=== PATIENT | female | born 1985 | race Caucasian/White ===

== ENCOUNTER 2017-05-04 09:24 | Observation (INO) | payer MEDICAID ==
[~2017-05-04] VITALS: Ht 162.6 cm; Wt 84.8 kg
[2017-05-04 10:31] VITALS: BP 122/77
[2017-05-04] MEDS ORDERED: PREN1TAB80 PO (10:32)
== END 2017-05-04 10:30 | disposition home or self-care (01) ==
LOC: 4S 09:24
PROVIDERS: ADMIT Obstetrics & Gynecology; ATTEND Obstetrics & Gynecology
DX: O48.0 Post-term pregnancy (principal); Z3A.40 40 weeks gestation of pregnancy
CPT/HCPCS: 59025; G0378

== ENCOUNTER 2017-05-06 04:08 | Inpatient (IN) | payer MEDICAID ==
[~2017-05-06] VITALS: Ht 162.6 cm; Wt 83.9 kg
[~2017-05-06 04:08] MED LIST: PREN1TAB80 PO
[2017-05-06] MEDS ORDERED: RINGERS SOLUTION,LACTATED 1,000 ML IV PRN (04:35)
[2017-05-06] MEDS ORDERED: OXYTOCIN 30 UNITS/LACT RINGERS 500 ML IV ONE (04:35)
[2017-05-06] MEDS ORDERED: RINGERS SOLUTION,LACTATED 1,000 ML IV SCH (04:35)
[2017-05-06] MEDS ORDERED: CITRIC ACID/SODIUM CITRATE 30 ML SOLUTION UDCUP PO PRN (04:45)
[2017-05-06] MEDS ORDERED: FentaNYL CITRATE-PF 100 MCG/2 ML VIAL IVP PRN (04:45)
[2017-05-06] MEDS ORDERED: METOCLOPRAMIDE HCL 5 MG/ML 2 ML VIAL IVP PRN (04:45)
[2017-05-06 04:48] VITALS: BP 118/79
[2017-05-06 05:09] LABS: BASOPHILS % (AUTO) 0.6 % (0.0-2.0); EOSINOPHILS % (AUTO) 1.7 % (1.0-6.0); HEMATOCRIT 35.3 % (36-46); HEMOGLOBIN 11.9 g/dL (12.0-16.0); LYMPHOCYTES # (AUTO) 2.3 K/uL (1.0-4.8); LYMPHOCYTES % (AUTO) 27.7 % (22.0-44.0); MEAN CORPUSCULAR HEMOGLOBIN 28.5 pg (26.0-34.0); MEAN CORPUSCULAR HGB CONC 33.8 G/dL (31.0-37.0); MEAN CORPUSCULAR VOLUME 84 fL (80-100); MONOCYTES # (AUTO) 0.5 K/uL (0.1-1.0); MONOCYTES % (AUTO) 6.4 % (2.0-9.0); NEUTROPHILS # (AUTO) 5.3 K/uL (1.8-7.7); NEUTROPHILS % (AUTO) 63.6 % (40.0-70.0); RED BLOOD CELL COUNT(AUTO) 4.19 MIL/uL (4.00-5.20); RED CELL DISTRIBUTION WIDTH 14.3 % (11.5-14.5); WHITE BLOOD COUNT (AUTO) 8.3 K/uL (4.5-11.0)
[2017-05-06 06:16] LABS: GLUCOSE,POINT OF CARE 85 MG/DL (70-110)
[2017-05-06] MEDS ORDERED: FentaNYL/BUPIV 0.125%/NS/PF 200 ML ED ONE (07:49)
[2017-05-06] MEDS ORDERED: BUPIVACAINE HCL/PF 0.25% 10 ML VIAL ONE (07:49)
[2017-05-06] MEDS ORDERED: OXYGEN THERAPY IH SCH (08:00)
[2017-05-06] MEDS ORDERED: FentaNYL/BUPIV 0.125%/NS/PF 200 ML ED PRN (11:03)
[2017-05-06] MEDS ORDERED: DiphenhydrAMINE HCL 50 MG/ML VIAL IVP PRN (11:15)
[2017-05-06] MEDS ORDERED: PROMETHAZINE HCL 12.5 MG in SODIUM CHLORIDE 0.9% 50 ML IV PRN (11:15)
[2017-05-06] MEDS ORDERED: ONDANSETRON HCL 4 MG/2 ML VIAL IVP PRN (11:15)
[2017-05-06] MEDS ORDERED: NALBUPHINE HCL 10 MG/ML VIAL IVP PRN (11:15)
[2017-05-06] MEDS ORDERED: METHYLERGONOVINE MALEATE 0.2 MG/ML VIAL IM PRN (13:45)
[2017-05-06] MEDS ORDERED: METHYLERGONOVINE MALEATE 0.2 MG TABLET PO PRN (14:15)
[2017-05-06] MEDS ORDERED: MISOPROSTOL 100 MCG TABLET PR ONE (14:15)
[2017-05-06] MEDS ORDERED: METHYLERGONOVINE MALEATE 0.2 MG TABLET ONE (14:16)
[2017-05-06] MEDS: METHYLERGONOVINE MALEATE 0.2 MG TABLET PO SCH ×3 (14:36→22:26)
[2017-05-06] MEDS ORDERED: LANOLIN 7 GM OINTMENT TP PRN (15:45)
[2017-05-06] MEDS ORDERED: IBUPROFEN 600 MG TABLET PO PRN (15:45)
[2017-05-06] MEDS ORDERED: GLYCERIN/WITCH HAZEL LEAF 40 PADS JAR TP PRN (15:45)
[2017-05-06] MEDS ORDERED: BENZOCAINE 20%/MENTHOL 56 GM SPRAY CANISTER TP PRN (15:45)
[2017-05-06] MEDS ORDERED: OxyCODONE HCL/ACETAMINOPHEN 5-325 MG TABLET PO PRN ×2 (15:45)
[2017-05-06] MEDS: MAGNESIUM HYDROXIDE SUSPENSION 30 ML UDCUP PO PRN (20:52)
[2017-05-07] MEDS: METHYLERGONOVINE MALEATE 0.2 MG TABLET PO SCH ×3 (02:04→10:15)
[2017-05-07 05:47] LABS: BASOPHILS # (AUTO) 0.04 K/uL (0.00-0.20); BASOPHILS % (AUTO) 0.3 % (0.0-2.0); EOSINOPHILS # (AUTO) 0.05 K/uL (0.00-0.70); EOSINOPHILS % (AUTO) 0.33 % (1.0-6.0); HEMATOCRIT 33.5 % (36-46); HEMOGLOBIN 11.3 g/dL (12.0-16.0); LYMPHOCYTES # (AUTO) 2.1 K/uL (1.0-4.8); LYMPHOCYTES % (AUTO) 12.8 % (22.0-44.0); MEAN CORPUSCULAR HGB CONC 33.6 G/dL (31.0-37.0); MEAN CORPUSCULAR VOLUME 86 fL (80-100); MONOCYTES % (AUTO) 5.8 % (2.0-9.0); NEUTROPHILS # (AUTO) 13.2 K/uL (1.8-7.7); NEUTROPHILS % (AUTO) 80.9 % (40.0-70.0); RED BLOOD CELL COUNT(AUTO) 3.88 MIL/uL (4.00-5.20); RED CELL DISTRIBUTION WIDTH 14.2 % (11.5-14.5); WHITE BLOOD COUNT (AUTO) 16.3 K/uL (4.5-11.0)
[2017-05-07] MEDS: MAGNESIUM HYDROXIDE SUSPENSION 30 ML UDCUP PO PRN (10:15)
[2017-05-07] MEDS ORDERED: IBUP-1547 PO (10:44)
== END 2017-05-07 14:30 | disposition home or self-care (01) | DRG 560 ==
LOC: OBSVTOIN 04:08 → 4S 04:08
PROVIDERS: ADMIT Obstetrics & Gynecology; ATTEND Obstetrics & Gynecology
PROC: 10E0XZZ Delivery of Products of Conception, External Approach (ICD-10-PCS; principal; 2017-05-06)
PROC: 0KQM0ZZ Repair Perineum Muscle, Open Approach (ICD-10-PCS; 2017-05-06)
PROC: 0W8NXZZ Division of Female Perineum, External Approach (ICD-10-PCS; 2017-05-06)
PROC: 3E0S3CZ (ICD-10-PCS; 2017-05-06)
PROC: 00HU33Z Insertion of Infusion Device into Spinal Canal, Percutaneous Approach (ICD-10-PCS; 2017-05-06)
DX: O24.420 Gestational diabetes mellitus in childbirth, diet controlled (principal); O70.1 Second degree perineal laceration during delivery; Z3A.40 40 weeks gestation of pregnancy; Z37.0 Single live birth
CPT/HCPCS: 82962; 86850; 86900; 86901; J2590; J3490; J7120